=== PATIENT | female | born 1955 | race Caucasian/White ===

== ENCOUNTER 2019-10-28 19:04 | Emergency (ER) | payer OTHER, SELFPAY ==
[2019-10-28] MEDS ORDERED: MORPHINE 4 MG/ML SYR ONE (19:53)
[2019-10-28] MEDS ORDERED: ONDANSETRON 4 MG (ODT) TAB ONE (19:53)
[2019-10-28] MEDS ORDERED: FENTANYL CITR 100 MCG/2 ML ONE (20:37)
--- NOTE | 2019-10-28 21:17 | ER ---
Nurse's Notes [facility] Name: Natalya Pierre Age: 64 yrs Sex: Female : 1955 Arrival Date: 10/28/2019 Time: 19:11 Bed 25 Private MD: Diagnosis: Dental pain Presentation: 10/28 19:25 Presenting complaint: Patient states: PAIN STARTED TO GET BAD THIS AFTERNOON. SHE TOOK rv TRAMADOL, WHICH IS FOR HER ARTHRITIS, NOT HELPING WITH THE TOOTHACHE. ALSO TOOK LIDOCAINE GELS. Transition of care: patient was not received from another setting of care. Onset of symptoms was October 28, 2019 at 12:00. Risk Assessment: Do you want to hurt yourself or someone else? Patient reports no desire to harm self or others. Initial Sepsis Screen: Does the patient meet any 2 criteria? No. Patient's initial sepsis screen is negative. Does the patient have a suspected source of infection? No. Patient's initial sepsis screen is negative. Care prior to arrival: None. 19:25 Method Of Arrival: Ambulatory rv 19:25 Acuity: CIARAN 4 rv Historical: - Allergies: 19:31 PENICILLINS; rv 19:31 Codeine; rv 19:31 Rifampin; rv 19:31 Talwin; rv 19:31 Tetanus Vaccines \T\ Toxoid; rv 19:31 Macrobid; rv - PMHx: 19:31 Hypertension; Thyroid problem; High Cholesterol; rv - PSHx: 19:31 ; Cholecystectomy; rv - Immunization history:: Adult Immunizations up to date. - Coronavirus screen:: The patient has NOT traveled to [place], [place], or [place] in the past 14 days. Proceed with normal triage process as indicated. The patient has NOT had contact with known/suspected case of Coronavirus? Proceed with normal triage procedures. - Social history:: Smoking status: Patient reports the use of cigarette tobacco products, denies chronic smoking, but will smoke occasionally. - Ebola Screening: : No symptoms or risks identified at this time. Screenin:55 Abuse screen: Denies threats or abuse. Denies injuries from another. Nutritional aj1 screening: No deficits noted. Tuberculosis screening: No symptoms or risk factors identified. 21:31 Fall Risk None identified. aj1 Assessment: 20:53 Reassessment: Received patient, states that she got really nauseous after receiving aj1 Fentanyl, states that she is feeling better at this time. Patient is laying in bed comfortably. 20:55 General: Appears in no apparent distress. comfortable, Behavior is calm, cooperative, aj1 appropriate for age. Pain: Complains of pain in right jaw. Neuro: Level of Consciousness is awake, alert, obeys commands. Cardiovascular: Patient's skin is warm and dry. Respiratory: Airway is patent Respiratory effort is even, unlabored, Respiratory pattern is regular, symmetrical. GI: No signs and/or symptoms were reported involving the gastrointestinal system. : No signs and/or symptoms were reported regarding the genitourinary system. EENT: Reports jaw pain. Derm: No signs and/or symptoms reported regarding the dermatologic system. Skin is pink, warm \T\ dry. normal. Musculoskeletal: No signs and/or symptoms reported regarding the musculoskeletal system. Circulation, motion, and sensation intact. 21:30 Reassessment: Patient appears in no apparent distress at this time. No changes from aj1 previously documented assessment. Patient and/or family updated on plan of care and expected duration. Pain level reassessed. Patient is alert, oriented x 3, equal unlabored respirations, skin warm/dry/pink. Vital Signs: 19:29 BP 135 / 80; Pulse 69; Resp 16; Temp 97.8; Pulse Ox 100% ; Weight 72.57 kg; Pain 10/10; rv 21:30 BP 148 / 76; Pulse 68; Resp 18; Pulse Ox 95% on R/A; aj1 ED Course: 19:11 Patient arrived in ED. as 19:29 Triage completed. rv 19:31 Arm band placed on. rv 19:36 Domingo Moran NP is PHCP. pm1 19:36 Lars Elise MD is Attending Physician. pm1 19:52 Artie Real RN is Primary Nurse. rv 20:55 Patient has correct armband on for positive identification. Bed in low position. Call aj1 light in reach. Side rails up X 1. 20:55 No provider procedures requiring assistance completed. aj1 21:30 Patient did not have IV access during this emergency room visit. aj1 Administered Medications: 19:52 Drug: morphine 4 mg {Note: RASS 1.} Route: IM; Site: left deltoid; rv 21:29 Follow up: Response: No adverse reaction aj1 19:53 Drug: Zofran 4 mg Route: PO; rv 21:29 Follow up: Response: No adverse reaction aj1 20:45 Drug: fentaNYL (PF) 50 mcg {Note: rass 0.} Route: IM; Site: right deltoid; rv 21:29 Follow up: Response: No adverse reaction; Pain is decreased; RASS: Alert and Calm (0) aj1 Outcome: 21:16 Discharge ordered by MD. pm1 21:30 Discharged to home ambulatory, with family. aj1 21:30 Condition: good 21:30 Discharge instructions given to patient, Instructed on discharge instructions, follow up and referral plans. medication usage, Demonstrated understanding of instructions, follow-up care, medications, Prescriptions given X 1. 21:31 Patient left the ED. aj1 Signatures: Ai Bell, RN RN aj1 Yaneli Mina Patrick, IRMA TIME RECORDER pm1 Artie Real RN RN rv
--- NOTE | 2019-10-28 21:17 | EDPHYS ---
Physician Documentation [facility] Name: Natalya Pierre Age: 64 yrs Sex: Female : 1955 Arrival Date: 10/28/2019 Time: 19:11 Bed 25 Private MD: ED Physician Lars Elise HPI: 10/28 20:16 This 64 yrs old Female presents to ER via Ambulatory with complaints of pm1 Toothache. 20:16 The patient presents with pain. The problem is located in the lower right first molar pm1 and lower right second molar. Onset: The symptoms/episode began/occurred today. Duration: The symptoms are continuous. Modifying factors: The symptoms are alleviated by nothing, the symptoms are aggravated by nothing. Associated signs and symptoms: Pertinent negatives: dysphagia, fever, swelling. Severity of symptoms: in the emergency department the symptoms are actually worse. patient reports pain to area of bridge to right lower molars. Contacted her dentist and was referred to the the ER. Historical: - Allergies: 19:31 PENICILLINS; rv 19:31 Codeine; rv 19:31 Rifampin; rv 19:31 Talwin; rv 19:31 Tetanus Vaccines \T\ Toxoid; rv 19:31 Macrobid; rv - PMHx: 19:31 Hypertension; Thyroid problem; High Cholesterol; rv - PSHx: 19:31 ; Cholecystectomy; rv - Immunization history:: Adult Immunizations up to date. - Coronavirus screen:: The patient has NOT traveled to [place], [place], or [place] in the past 14 days. Proceed with normal triage process as indicated. The patient has NOT had contact with known/suspected case of Coronavirus? Proceed with normal triage procedures. - Social history:: Smoking status: Patient reports the use of cigarette tobacco products, denies chronic smoking, but will smoke occasionally. - Ebola Screening: : No symptoms or risks identified at this time. ROS: 20:16 Constitutional: Negative for fever, chills, and weight loss, Eyes: Negative for injury, pm1 pain, redness, and discharge. 20:16 Neck: Negative for injury, pain, and swelling, Cardiovascular: Negative for chest pain, palpitations, and edema, Respiratory: Negative for shortness of breath, cough, wheezing, and pleuritic chest pain, Abdomen/GI: Negative for abdominal pain, nausea, vomiting, diarrhea, and constipation, Neuro: Negative for headache, weakness, numbness, tingling, and seizure. 20:16 ENT: Positive for dental pain, Negative for ear pain, difficulty swallowing, difficulty handling secretions, hoarseness. 20:16 All other systems are negative. Exam: 20:16 Constitutional: This is a well developed, well nourished patient who is awake, alert, pm1 and in no acute distress. Head/Face: Normocephalic, atraumatic. Eyes: Pupils equal round and reactive to light, extra-ocular motions intact. Lids and lashes normal. Conjunctiva and sclera are non-icteric and not injected. Cornea within normal limits. Periorbital areas with no swelling, redness, or edema. 20:16 Neck: Trachea midline, no thyromegaly or masses palpated, and no cervical lymphadenopathy. Supple, full range of motion without nuchal rigidity, or vertebral point tenderness. No Meningismus. Chest/axilla: Normal chest wall appearance and motion. Nontender with no deformity. No lesions are appreciated. Cardiovascular: Regular rate and rhythm with a normal S1 and S2. No gallops, murmurs, or rubs. Normal PMI, no JVD. No pulse deficits. Respiratory: Lungs have equal breath sounds bilaterally, clear to auscultation and percussion. No rales, rhonchi or wheezes noted. No increased work of breathing, no retractions or nasal flaring. Back: No spinal tenderness. No costovertebral tenderness. Full range of motion. Skin: Warm, dry with normal turgor. Normal color with no rashes, no lesions, and no evidence of cellulitis. 20:16 ENT: External ear(s): are unremarkable, Ear canal(s): are normal, TM's: are normal, Dental exam: pain, that is moderate, specifically in the lower right first molar (#30) and lower right second molar (#31). 20:16 Neuro: Orientation: is normal, Motor: is normal, moves all fours. Vital Signs: 19:29 BP 135 / 80; Pulse 69; Resp 16; Temp 97.8; Pulse Ox 100% ; Weight 72.57 kg; Pain 10/10; rv 21:30 BP 148 / 76; Pulse 68; Resp 18; Pulse Ox 95% on R/A; aj1 MDM: 19:43 Patient medically screened. pm1 21:13 Data reviewed: vital signs. Data interpreted: Pulse oximetry: on room air is 100 %. pm1 Interpretation: normal. Counseling: I had a detailed discussion with the patient and/or guardian regarding: the historical points, exam findings, and any diagnostic results supporting the discharge/admit diagnosis, the need for outpatient follow up, for definitive care, a dentist, to return to the emergency department if symptoms worsen or persist or if there are any questions or concerns that arise at home. 21:13 ED course: Patient pain 6/10. Patient feels comfortable going home with pain relief. pm1 Administered Medications: 19:52 Drug: morphine 4 mg {Note: RASS 1.} Route: IM; Site: left deltoid; rv 21:29 Follow up: Response: No adverse reaction aj1 19:53 Drug: Zofran 4 mg Route: PO; rv 21:29 Follow up: Response: No adverse reaction aj1 20:45 Drug: fentaNYL (PF) 50 mcg {Note: rass 0.} Route: IM; Site: right deltoid; rv 21:29 Follow up: Response: No adverse reaction; Pain is decreased; RASS: Alert and Calm (0) aj Disposition: 21:33 Co-signature as Attending Physician, Lars Elise MD. rn Disposition: 10/28/19 21:16 Discharged to Home. Impression: Dental pain. - Condition is Stable. - Discharge Instructions: Dental Pain. - Prescriptions for Clindamycin HCl 300 mg Oral Capsule - take 1 capsule by ORAL route every 6 hours for 10 days; 40 capsule. - Medication Reconciliation Form, Thank You Letter, Antibiotic Education, Prescription Opioid Use form. - Follow up: Emergency Department; When: As needed; Reason: Worsening of condition. Follow up: Private Physician; When: 2 - 3 days; Reason: Recheck today's complaints, Continuance of care, Re-evaluation by your physician. - Problem is new. - Symptoms have improved. Signatures: Ai Bell RN RN aj1 Lars Elise MD MD rn Domingo Moran, IRMA DIRECTOR FUNERAL pm1 Artie Real, CAROLYN RN rv Corrections: (The following items were deleted from the chart) 21:31 21:16 10/28/2019 21:16 Discharged to Home. Impression: Dental pain. Condition is aj1 Stable. Forms are Medication Reconciliation Form, Thank You Letter, Antibiotic Education, Prescription Opioid Use. Follow up: Emergency Department; When: As needed; Reason: Worsening of condition. Follow up: Private Physician; When: 2 - 3 days; Reason: Recheck today's complaints, Continuance of care, Re-evaluation by your physician. Problem is new. Symptoms have improved. pm1
[2019-10-28 21:35] VITALS: TEMP 97.8
[2019-10-28 21:37] VITALS: BP 148/76; O2SAT 95
== END 2019-10-28 21:31 | disposition home or self-care (01) ==
LOC: ER 19:04
DX: K08.89 Other specified disorders of teeth and supporting structures (principal); Z88.0 Allergy status to penicillin; Z88.6 Allergy status to analgesic agent; Z88.1 Allergy status to other antibiotic agents; Z88.7 Allergy status to serum and vaccine
CPT/HCPCS: 96372; 99283; J3010

== ENCOUNTER 2022-05-06 06:22 | Emergency (ER) | payer OTHER ==
--- OUTSIDE RECORDS SUMMARY | 2022-05-06 06:24 | XMS REPORT | Continuity of Care Document ---
:1955 Author Organization [facility] t Address [address] [place] [address] Care Team Providers Name Role Phone DR SUGAR CHEN Attending Clinician Unavailable DR SUGAR CHEN Admitting Clinician Unavailable Problems This patient has no known problems. Allergies, Adverse Reactions, Alerts This patient has no known allergies or adverse reactions. Medications This patient has no known medications. Procedures This patient has no known procedures. Encounters Start End Encounter Admission Attending Care Care Encounter Source Date/Time Date/Time Type Type Clinicians Facility Department ID 2017-09-22 Inpatient C STELLA CHEN [facility] [id number] [facility] 07:00:00 [facility] Results This patient has no known results.
[2022-05-06 07:14] LABS: Absolute Lymphocytes (CBC) 2.8 K/uL (0.7-4.9); Hematocrit 41.7 % (36.0-45.0); Lymphocytes % 25.8 % (15.3-44.8); MCV 80.6 fL (80-100); MPV 7.5 fL (7.6-11.3); RBC Red Blood Cell Count 5.17 M/uL (3.86-4.86)
[2022-05-06] MEDS ORDERED: FENTANYL CITR 100 MCG/2 ML ONE (07:21)
[2022-05-06 07:27] LABS: Potassium 3.6 mmol/L (3.5-5.1)
--- NOTE | 2022-05-06 08:30 | RAD REPORT ---
EXAM DESCRIPTION: CT - Head C Spine Cap Sherry Jo - 05/06/2022 8:00 am CLINICAL HISTORY: Trauma, head and neck injury. Chest, abdomen and pelvis pain. fall, head injury, neck, back chest and abd pain COMPARISON: No comparisons TECHNIQUE: CT head without contrast. CT cervical spine without contrast with coronal and sagittal reformatted images. CT chest, abdomen and pelvis with IV contrast (approximately 100 mL nonionic IV contrast) with drake l and sagittal reformatted images of the spine. All CT scans are performed using dose optimization technique as appropriate and may include automated exposure control or mA/KV adjustment according to patient size. FINDINGS: CT HEAD WITHOUT CONTRAST: No intracranial hemorrhage, hydrocephalus or extra-axial fluid collection. No areas of brain edema o r midline shift. The paranasal sinuses and mastoids are clear. The calvarium is intact. CT CERVICAL SPINE WITHOUT CONTRAST: No fracture or subluxation. The prevertebral soft tissues are normal in thickness. CT CHEST, ABDOMEN, PELVIS WITH CONTRAST: The lungs are clear.Enlarged thyroid gland.No pneumothorax or pericardial/pleural fluid. No evidence of intra-abdominal visceral injury, free fluid or free air. Cholecystectomy clips. No concerning pelvic findings. Lumbar degenerative changes are present. No fractures. IMPRESSION: Negative for acute traumatic findings.
--- NOTE | 2022-05-06 08:48 | RAD REPORT ---
EXAM DESCRIPTION: RAD - Shoulder Left 2 View - 05/06/2022 7:26 am CLINICAL HISTORY: PAIN COMPARISON: No comparisons FINDINGS: Mild AC joint and glenohumeral joint arthritic changes are present. No fracture or disloca tion is seen.
[2022-05-06] MEDS ORDERED: DIPHENHYDRAMINE 50 MG/ML VIAL ONE (08:51)
--- NOTE | 2022-05-06 09:43 | ER ---
Nurse's Notes [facility] Name: Natalya Pierre Age: 66 yrs Sex: Female : 1955 Arrival Date: 05/06/2022 Time: 06:25 Bed 8 Private MD: Diagnosis: Pain in unspecified shoulder Presentation: 05/06 06:38 Chief complaint: Patient states: she fell over her dog toy about an hour [employer]OCK WORK[employer] falling bb backwards hitting her head but denies LOC now c/o of back pain, neck pain, left arm and shoulder pain. Care prior to arrival: None. Mechanism of Injury: Fall. Trauma event details: Injury occurred in the [facility], Injury occurred: at home. Injury occurred: May 06, 2022. 06:38 Acuity: CIARAN 3 bb 06:38 Method Of Arrival: Wheelchair bb 06:41 Coronavirus screen: At this time, the client does not indicate any symptoms associated bb with coronavirus-19. Ebola Screen: No symptoms or risks identified at this time. Initial Sepsis Screen: Does the patient meet any 2 criteria? No. Patient's initial sepsis screen is negative. Does the patient have a suspected source of infection? No. Patient's initial sepsis screen is negative. Risk Assessment: Do you want to hurt yourself or someone else? Patient reports no desire to harm self or others. Onset of symptoms was May 06, 2022. Triage Assessment: 06:48 General: Appears uncomfortable, Behavior is anxious. General: Reports "I fell so I am a tw5 little upset.". Pain: Complains of pain in back, chest and anterior aspect of left shoulder Pain currently is 9 out of 10 on a pain scale. Neuro: Level of Consciousness is awake, alert, obeys commands. Respiratory: Airway is patent Trachea midline Respiratory effort is even, unlabored. Trauma Activation: Not Applicable Physician: ED Physician; Name: ; Notified At: ; Arrived At: Physician: General Surgeon; Name: ; Notified At: ; Arrived At: Physician: Radiology; Name: ; Notified At: ; Arrived At: Physician: Respiratory; Name: ; Notified At: ; Arrived At: Physician: Lab; Name: ; Notified At: ; Arrived At: Historical: - Allergies: 06:41 Codeine; bb 06:41 Macrobid; bb 06:41 PENICILLINS; bb 06:41 Rifampin; bb 06:41 Talwin; bb 06:41 Tetanus Vaccines \\T\\ Toxoid; bb - Home Meds: 06:41 valsartan oral [Active]; levothyroxine oral [Active]; Cymbalta oral [Active]; Bystolic bb oral [Active]; doxazosin oral [Active]; - PMHx: 06:41 High Cholesterol; Hypertension; Thyroid problem; bb - Immunization history: Last tetanus immunization: unknown. - Social history:: Smoking status: Patient reports the use of cigarette tobacco products. - Family history:: not pertinent. - Hospitalizations: : No recent hospitalization is reported. Screenin:38 Abuse screen: Denies threats or abuse. Tuberculosis screening: No symptoms or risk bb factors identified. 06:52 Nutritional screening: No deficits noted. Fall Risk Fall in past 12 months (25 points). tw5 Primary Survey: 06:38 NO uncontrolled hemorrhage observed. A: The client is awake and alert. The airway is bb patent. Breathing/Chest: Spontaneous respiratory effort, equal unlabored respirations, breath sounds clear bilaterally, regular pattern, symmetrical chest rise and fall. Circulation: No external hemorrhage present. Regular and strong central pulse, skin warm/dry/normal color. Disability Client is alert. 06:54 Exposure/Environment: There is no evidence of uncontrolled external bleeding. tw5 Reassessment Breathing: Spontaneous respiratory effort, equal unlabored respirations, breath sounds clear bilaterally, regular pattern with symmetrical chest rise and fall. Assessment: 06:52 General: Reports "I fell hit my shoulder on the table in front of the couch and rolled tw5 over and fell the rest of the way on the floor. I landed on my back.". Neuro: Level of Consciousness is awake, alert, obeys commands, Oriented to person, place, time, situation. Respiratory: No deficits noted. 07:00 Reassessment: No changes from previously documented assessment. REPORT RECEIVED FROM ll1 CHEMICAL TECHNICIAN RN. 07:22 Reassessment: No changes from previously documented assessment. Patient and/or family ll1 updated on plan of care and expected duration. Pain level reassessed. Patient is alert, oriented x 3, equal unlabored respirations, skin warm/dry/pink. 08:15 Reassessment: No changes from previously documented assessment. Patient and/or family ll1 updated on plan of care and expected duration. Pain level reassessed. Patient is alert, oriented x 3, equal unlabored respirations, skin warm/dry/pink. 09:15 Reassessment: No changes from previously documented assessment. Patient and/or family ll1 updated on plan of care and expected duration. Pain level reassessed. Patient is alert, oriented x 3, equal unlabored respirations, skin warm/dry/pink. 10:11 Reassessment: No changes from previously documented assessment. Patient and/or family ll1 updated on plan of care and expected duration. Pain level reassessed. Patient is alert, oriented x 3, equal unlabored respirations, skin warm/dry/pink. Vital Signs: 06:38 BP 227 / 89; Pulse 69; Resp 16 S; Temp 98.3(O); Pulse Ox 96% on R/A; Weight 75.3 kg bb (R); Height 5 ft. 1 in. (154.94 cm) (R); Pain 9/10; 06:48 BP 235 / 106; Pulse 71; Resp 18; Pulse Ox 93% on R/A; tw5 07:21 BP 219 / 86; ll1 08:18 BP 210 / 80; Pulse 71; Resp 17; Pulse Ox 97% on R/A; ll1 08:54 BP 210 / 84; ph 10:12 BP 184 / 82; Pulse 70; Resp 16; Pulse Ox 97% on R/A; ll1 06:38 Body Mass Index 31.37 (75.30 kg, 154.94 cm) bb 10:12 Dr. Blair notified of BP still elevated. Still cleared for discharge. Will take her ll1 BP meds when she gets home. Ana Coma Score: 06:38 Eye Response: spontaneous(4). Verbal Response: oriented(5). Motor Response: obeys bb commands(6). Total: 15. Trauma Score (Adult): 06:38 Eye Response: spontaneous(1); Verbal Response: oriented(1); Motor Response: obeys bb commands(2); Systolic BP: > 89 mm Hg(4); Respiratory Rate: 10 to 29 per min(4); Alger Score: 15; Trauma Score: 12 ED Course: 06:25 Patient arrived in ED. ja2 06:26 Lars Elise MD is Attending Physician. rn 06:38 Patient has correct armband on for positive identification. Call light in reach. Adult bb w/ patient. 06:38 Patient maintains SpO2 saturation greater than 95% on room air. bb 06:39 Triage completed. bb 06:41 Arm band placed on Patient placed in an exam room, on pulse oximetry. Family bb accompanied patient. 06:52 Awaiting lab results. tw5 06:52 Pulse ox on. NIBP on. Door closed. tw5 06:54 Initial lab(s) drawn, by ED staff, sent to lab. Inserted saline lock: 20 gauge in right tw5 antecubital area, using aseptic technique. Blood collected. Started by Debra LEON. 06:55 Basic Metabolic Panel Sent. tw5 06:55 CBC with Diff Sent. tw5 07:05 Thermoregulation: warm blanket given to patient. ll1 07:07 Basic Metabolic Panel Sent. tw5 07:08 CBC with Diff Sent. tw5 07:12 Satnam Aleman RN is Primary Nurse. ll1 07:25 Attending Physician role handed off by Lars Elise MD kdr 07:25 Kendrick Blair MD is Attending Physician. kdr 07:27 XRAY Shoulder LEFT 2 view In Process Unspecified. EDMS 07:56 Primary Nurse role handed off by Satnam Aleman RN eb 08:02 Head C Spine Cap W Con In Process Unspecified. EDMS 08:18 Satnam Aleman RN is Primary Nurse. ll1 10:11 No provider procedures requiring assistance completed. IV discontinued, intact, ll1 bleeding controlled, No redness/swelling at site. Pressure dressing applied. Administered Medications: 07:21 Drug: fentaNYL (PF) 25 mcg {Note: RASS 0, PAIN 9/10.} Route: IVP; Site: right ll1 antecubital; 08:19 Follow up: Response: No adverse reaction; Pain is decreased; RASS: Alert and Calm (0) ll1 08:25 Drug: fentaNYL (PF) 25 mcg {Note: rass 0, pain 9/10.} Route: IVP; Site: right ll1 antecubital; 10:17 Follow up: Response: No adverse reaction ll1 10:17 Follow up: Response: No adverse reaction; Pain is decreased; RASS: Alert and Calm (0) ll1 08:50 Drug: Benadryl (diphenhydrAMINE) 12.5 mg Route: IVP; Site: right antecubital; ph 10:17 Follow up: Response: No adverse reaction; RASS: Alert and Calm (0) ll1 09:52 Drug: [place] (HYDROcodone-acetaminophen) (7.5 mg-325 mg) 1 tabs {Note: rass 0, pain kr3 7/10.} Route: PO; 10:18 Follow up: Response: No adverse reaction ll1 09:52 Drug: Flexeril (cyclobenzaprine) 10 mg Route: PO; kr3 10:18 Follow up: Response: No adverse reaction; RASS: Alert and Calm (0) ll1 Medication: 06:52 VIS not applicable for this client. tw5 Intake: 06:38 PO: 0ml; Total: 0ml. bb Outcome: 09:43 Discharge ordered by MD. kdr 10:15 Discharged to home via wheelchair. ll1 10:15 Condition: stable 10:15 Discharge instructions given to patient, family, Instructed on discharge instructions, follow up and referral plans. no drinking with medication, no driving heavy equipment, medication usage, Demonstrated understanding of instructions, follow-up care, medications, Prescriptions given X 2. 10:18 Patient's length of stay was not longer than 2 hours. ll1 10:19 Patient left the ED. 1 Signatures: Dispatcher [employer] EDMS Kendrick Blair MD MD kdr Ballard, Brenda RN RN bb Lars Elise MD MD rn Hall, Patricia, RN RN ph Botello, Elizabeth eb Lewis, Lynsay RN RN ll1 Sandrita Winn Tiffany tw5 Marisa Guerin RN RN kr3
--- NOTE | 2022-05-06 09:43 | EDPHYS ---
Physician Documentation [facility] Name: Natalya Pierre Age: 66 yrs Sex: Female : 1955 Arrival Date: 05/06/2022 Time: 06:25 Bed 8 Private MD: ED Physician Kendrick Blair HPI: 05/06 06:52 This 66 yrs old Female presents to ER via Wheelchair with complaints of Fall Injury. rn 06:52 Details of fall: The patient fell from an upright position, while standing. Onset: The rn symptoms/episode began/occurred just prior to arrival. Associated injuries: The patient sustained injury to the head, neck injury, upper back injury, injury to the low back, injury to the chest, injury to the abdomen. Severity of symptoms: At their worst the symptoms were moderate, in the emergency department the symptoms are unchanged. The patient has not experienced similar symptoms in the past. The patient has not recently seen a physician. Remembers all events, no LOC. Takes aspirin only. Historical: - Allergies: 06:41 Codeine; bb 06:41 Macrobid; bb 06:41 PENICILLINS; bb 06:41 Rifampin; bb 06:41 Talwin; bb 06:41 Tetanus Vaccines \T\ Toxoid; bb - Home Meds: 06:41 valsartan oral [Active]; levothyroxine oral [Active]; Cymbalta oral [Active]; Bystolic bb oral [Active]; doxazosin oral [Active]; - PMHx: 06:41 High Cholesterol; Hypertension; Thyroid problem; bb - Immunization history: Last tetanus immunization: unknown. - Social history:: Smoking status: Patient reports the use of cigarette tobacco products. - Family history:: not pertinent. - Hospitalizations: : No recent hospitalization is reported. ROS: 06:52 Constitutional: Negative for fever, chills, and weight loss, Eyes: Negative for injury, rn pain, redness, and discharge, Neck: + neck pain Cardiovascular: Negative for palpitations, and edema, Respiratory: Negative for shortness of breath, cough, wheezing Abdomen/GI: Negative for abdominal pain, nausea, vomiting, diarrhea, and constipation, Back: + back pain MS/Extremity: + left shoulder pain and injury Skin: Negative for injury, rash, and discoloration, Neuro: Negative for weakness, numbness, tingling, and seizure. Exam: 06:52 Constitutional: This is a well developed, well nourished patient who is awake, alert, rn and in no acute distress. Head/Face: Normocephalic, atraumatic. Eyes: Periorbital areas with no swelling, redness, or edema. Cardiovascular: Regular rate and rhythm. No pulse deficits. Respiratory: Speaking full sentences. No increased work of breathing, no retractions or nasal flaring. Abdomen/GI: soft, mild epigastric tenderenss Back: + tenderness in cervical and thoracic spinal region MS/ Extremity: Pulses equal, no cyanosis. Neurovascular intact. Full, normal range of motion of both hips and RUE. Mild painful ROM left shoulder. Neuro: Awake and alert, GCS 15, oriented to person, place, time, and situation. Cranial nerves II-XII grossly intact. Motor strength 5/5 in all extremities. Sensory grossly intact. Vital Signs: 06:38 BP 227 / 89; Pulse 69; Resp 16 S; Temp 98.3(O); Pulse Ox 96% on R/A; Weight 75.3 kg bb (R); Height 5 ft. 1 in. (154.94 cm) (R); Pain 9/10; 06:48 BP 235 / 106; Pulse 71; Resp 18; Pulse Ox 93% on R/A; tw5 07:21 BP 219 / 86; ll1 08:18 BP 210 / 80; Pulse 71; Resp 17; Pulse Ox 97% on R/A; ll1 08:54 BP 210 / 84; ph 10:12 BP 184 / 82; Pulse 70; Resp 16; Pulse Ox 97% on R/A; ll1 06:38 Body Mass Index 31.37 (75.30 kg, 154.94 cm) bb 10:12 Dr. Blair notified of BP still elevated. Still cleared for discharge. Will take her ll1 BP meds when she gets home. Ana Coma Score: 06:38 Eye Response: spontaneous(4). Verbal Response: oriented(5). Motor Response: obeys bb commands(6). Total: 15. Trauma Score (Adult): 06:38 Eye Response: spontaneous(1); Verbal Response: oriented(1); Motor Response: obeys bb commands(2); Systolic BP: > 89 mm Hg(4); Respiratory Rate: 10 to 29 per min(4); [place] Score: 15; Trauma Score: 12 MDM: 06:26 Patient medically screened. rn 09:41 Data reviewed: vital signs, nurses notes, lab test result(s), radiologic studies. kdr Counseling: I had a detailed discussion with the patient and/or guardian regarding: the historical points, exam findings, and any diagnostic results supporting the discharge/admit diagnosis, lab results, radiology results, the need for outpatient follow up. 05/06 06:51 Order name: Basic Metabolic Panel; Complete Time: 07:37 rn 05/06 06:51 Order name: CBC with Diff; Complete Time: 07:37 rn 05/06 06:52 Order name: XRAY Shoulder LEFT 2 view; Complete Time: 09:27 rn 05/06 07:34 Order name: Head C Spine Cap W Con; Complete Time: 09:27 EDMS 05/06 06:51 Order name: Labs collected and sent; Complete Time: 06:55 rn Administered Medications: 07:21 Drug: fentaNYL (PF) 25 mcg {Note: RASS 0, PAIN 9/10.} Route: IVP; Site: right ll1 antecubital; 08:19 Follow up: Response: No adverse reaction; Pain is decreased; RASS: Alert and Calm (0) ll1 08:25 Drug: fentaNYL (PF) 25 mcg {Note: rass 0, pain 9/10.} Route: IVP; Site: right ll1 antecubital; 10:17 Follow up: Response: No adverse reaction ll1 10:17 Follow up: Response: No adverse reaction; Pain is decreased; RASS: Alert and Calm (0) ll1 08:50 Drug: Benadryl (diphenhydrAMINE) 12.5 mg Route: IVP; Site: right antecubital; ph 10:17 Follow up: Response: No adverse reaction; RASS: Alert and Calm (0) ll1 09:52 Drug: [place] (HYDROcodone-acetaminophen) (7.5 mg-325 mg) 1 tabs {Note: rass 0, pain kr3 7/10.} Route: PO; 10:18 Follow up: Response: No adverse reaction ll1 09:52 Drug: Flexeril (cyclobenzaprine) 10 mg Route: PO; kr3 10:18 Follow up: Response: No adverse reaction; RASS: Alert and Calm (0) ll1 Disposition Summary: 05/06/22 09:43 Discharge Ordered Location: Home kdr Problem: new kdr Symptoms: have improved kdr Condition: Stable kdr Diagnosis - Pain in unspecified shoulder kdr Followup: kdr - With: Private Physician - When: 2 - 3 days - Reason: If symptoms return, Further diagnostic work-up, Recheck today's complaints, Continuance of care, Re-evaluation by your physician Discharge Instructions: - Discharge Summary Sheet kdr - Joint Pain kdr - Musculoskeletal Pain kdr - Shoulder Range of Motion Exercises kdr - Shoulder Pain, [id number] kdr Forms: - Medication Reconciliation Form kdr - Thank You Letter kdr - Prescription Opioid Use kdr - Family Work Release kr3 Prescriptions: - Cyclobenzaprine 10 mg Oral Tablet - take 1 tablet by ORAL route every 8 hours As needed; 6 tablet; Refills: 0, kdr Product Selection Permitted - Tylenol-Codeine #3 300 mg-30 mg Oral - take 1 tablet by ORAL route every 4-6 hours As needed; 6 tablet; Refills: 0, kdr Product Selection Permitted Signatures: Dispatcher [employer] EDMS Kendrick Blair MD MD kdr Chika Dejesus, RN RN bb Lars Elise MD MD rn Hall, Patricia, RN RN ph Satnam Aleman RN RN ll1 Marisa Guerin RN RN kr3 Corrections: (The following items were deleted from the chart) 09:02 06:52 TYPE AND SCREEN+[id number] ordered. EDAK EDMS
[2022-05-06] MEDS ORDERED: CYCLOBENZAPRINE 10 MG TAB ONE (09:56)
[2022-05-06] MEDS ORDERED: HYDROCODONE/APAP 7.5/325 MG TAB ONE (09:57)
[2022-05-06 10:24] VITALS: TEMP 98.3
[2022-05-06 10:30] VITALS: O2SAT 97
[2022-05-06 10:34] VITALS: BP 184/82
== END 2022-05-06 10:19 | disposition home or self-care (01) ==
LOC: ER 06:22
DX: M25.512 Pain in left shoulder (principal); M54.2 Cervicalgia; I10 Essential (primary) hypertension; E78.00 Pure hypercholesterolemia, unspecified; F17.210 Nicotine dependence, cigarettes, uncomplicated; Z88.1 Allergy status to other antibiotic agents; Z88.5 Allergy status to narcotic agent; Z88.7 Allergy status to serum and vaccine
CPT/HCPCS: 85025; 80048; 36415; 70450; 72125; 71260; 74177; 73030; 96375; 96374; 99284; Q9967; J1200; J3010